=== PATIENT | male | born 1940 | race Caucasian/White ===

== ENCOUNTER 2018-09-09 05:54 | Day surgery (SDC) | payer MEDICARE, OTHER ==
[2018-09-08 14:39] LABS: BASOPHILS # (AUTO) 0.1 X10'3 (0-0.2); BASOPHILS % (AUTO) 0.8 % (0-1); EOSINOPHILS # (AUTO) 0.1 X10'3 (0-0.9); EOSINOPHILS % (AUTO) 1.2 % (0-6); HEMATOCRIT 42.6 % (42.0-52.0); HEMOGLOBIN 14.4 g/dl (14.0-17.9); LYMPHOCYTES # (AUTO) 0.8 X10'3 (1.1-4.8); LYMPHOCYTES % (AUTO) 11.2 % (21-51); MEAN CORPUSCULAR HGB CONC 33.7 g/dL (33.0-36.5); MEAN CORPUSCULAR VOLUME 94.9 FL (78-98); MEAN PLATELET VOLUME 10.5 FL (7.4-10.4); MONOCYTES # (AUTO) 0.4 X10'3 (0-0.9); MONOCYTES % (AUTO) 5.6 % (2-12); NEUTROPHILS # (AUTO) 5.8 X10'3 (1.8-7.7); NEUTROPHILS % (AUTO) 81.2 % (42-75); PLATELET COUNT 246 X10'3 (140-440); RED BLOOD COUNT 4.48 X10'6 (4.70-6.10); WHITE BLOOD COUNT 7.1 X10'3 (4.5-11.0)
[2018-09-08 14:48] LABS: ALBUMIN 3.7 G/DL (3.4-5.0); ANION GAP 7 (8-16); BLOOD UREA NITROGEN 29 MG/DL (7-18); BUN/CREATININE RATIO 23.6 (5.4-32.0); CALCIUM 9.6 MG/DL (8.5-10.1); CHLORIDE 103 MMOL/L (99-107); CREATININE 1.23 MG/DL (0.60-1.10); GLUCOSE 100 MG/DL (70-104); POTASSIUM 4.4 MMOL/L (3.5-5.1); SODIUM 136 MMOL/L (135-145); TOTAL CARBON DIOXIDE 25.8 MMOL/L (24-32); eGFR 57 ML/MIN
[2018-09-08 14:49] LABS: PARTIAL THROMBOPLASTIN TIME 31 SECONDS (22-32)
[2018-09-09] VITALS (16 sets, daily range): BP systolic 110–148; BP diastolic 59–88
[~2018-09-09] VITALS: Ht 188 cm; Wt 93.7 kg
[2018-09-09] MEDS ORDERED: LORazepam 0.5 MG tablet PO PRN (06:20)
[2018-09-09] MEDS ORDERED: normal saline 1,000 ML IV SCH (06:20)
[2018-09-09] MEDS ORDERED: diphenhydrAMINE 25mg capsule PO PRN (06:20)
[2018-09-09] MEDS ORDERED: FEXO180T94 PO (06:33)
[2018-09-09] MEDS ORDERED: LEVO125T PO (06:33)
[2018-09-09] MEDS ORDERED: ASPI81TA52 PO (06:33)
[2018-09-09] MEDS ORDERED: PRED1TAB PO (06:33)
[2018-09-09] MEDS ORDERED: ASCO500C15 PO (07:06)
[2018-09-09] MEDS ORDERED: HYDR25TA4 PO (07:06)
[2018-09-09] MEDS ORDERED: VALS40TA2 PO (07:06)
[2018-09-09] MEDS ORDERED: LIDOcaine/PRILOcaine 5gm cream TP ONE (07:10)
[2018-09-09] MEDS ORDERED: midazolam 2 mg/2 ml injection ONE (07:36)
[2018-09-09] MEDS ORDERED: verapamil 2.5 mg/ml inj IV ONE (07:36)
[2018-09-09] MEDS ORDERED: fentaNYL/PF 50MCG/1 ML 2ML syringe ONE (07:36)
[2018-09-09] MEDS ORDERED: nitroGLYCERIN-Tridil 50MG/D5W 250 ML IV ONE (07:36)
[2018-09-09] MEDS ORDERED: LIDOcaine 1% (10mg/ml)w/preservative injection 20ml MDV ONE (07:36)
[2018-09-09] MEDS ORDERED: heparin 1,000unit/ml 10ml vial 10 ML ONE (07:36)
[2018-09-09] MEDS ORDERED: iohexol 350 MG/ML 50ML vial IV ONE (07:37)
[2018-09-09] MEDS ORDERED: iohexol 350MG/ML 100ml bottle IV ONE (07:37)
[2018-09-09 09:01] LABS: ISTAT HGB ART 12.6 g/dl (14.0-18.0); ISTAT Hct ART 37 %PCV (42-52); ISTAT O2 SATURATION ARTERIAL 97 % (95-98); ISTAT SOURCE ART
[2018-09-09 09:01] LABS: ISTAT Hct MIX 37 %PCV (42-52); ISTAT O2 SATURATION MIX VENOUS 73 % (60-80); ISTAT SOURCE MIX
== END 2018-09-09 14:50 | disposition home or self-care (01) ==
LOC: SSTAY O 05:54
PROVIDERS: ATTEND Internal Medicine Cardiovascular Disease
DX: I25.10 Atherosclerotic heart disease of native coronary artery without angina pectoris (principal); I10 Essential (primary) hypertension; E78.5 Hyperlipidemia, unspecified; J44.9 Chronic obstructive pulmonary disease, unspecified; M19.90 Unspecified osteoarthritis, unspecified site
CPT/HCPCS: 36415; 80048; 82803; 85014; 85025; 85610; 85730; 93005; 93460; 99152; 99153; C1769; C1894; J1644; J2001; J2250; J3010; J7030; Q0163; Q9967; A4620; A5120; A6258; J3490

== ENCOUNTER 2020-05-11 05:52 | Day surgery (SDC) | payer MEDICARE ==
[2020-05-10 14:32] LABS: BASOPHILS # (AUTO) 0.1 X10'3 (0-0.2); BASOPHILS % (AUTO) 0.8 % (0-1); EOSINOPHILS # (AUTO) 0.7 X10'3 (0-0.9); EOSINOPHILS % (AUTO) 9.8 % (0-6); HEMATOCRIT 43.9 % (42.0-52.0); HEMOGLOBIN 14.4 g/dl (14.0-17.9); LYMPHOCYTES # (AUTO) 1.2 X10'3 (1.1-4.8); LYMPHOCYTES % (AUTO) 17.7 % (21-51); MEAN CORPUSCULAR HEMOGLOBIN 30.8 PG (27.0-31.0); MEAN CORPUSCULAR HGB CONC 32.9 g/dL (33.0-36.5); MEAN CORPUSCULAR VOLUME 93.7 FL (78-98); MEAN PLATELET VOLUME 10.7 FL (7.4-10.4); MONOCYTES # (AUTO) 0.8 X10'3 (0-0.9); MONOCYTES % (AUTO) 11.2 % (2-12); NEUTROPHILS # (AUTO) 4.2 X10'3 (1.8-7.7); NEUTROPHILS % (AUTO) 60.5 % (42-75); PLATELET COUNT 206 X10'3 (140-440); RED BLOOD COUNT 4.69 X10'6 (4.70-6.10); RED CELL DISTRIBUTION WIDTH 14.7 % (11.5-14.5); WHITE BLOOD COUNT 6.9 X10'3 (4.5-11.0)
[2020-05-10 14:42] LABS: ALBUMIN 3.9 G/DL (3.4-5.0); ANION GAP 9 (8-16); BLOOD UREA NITROGEN 25 MG/DL (7-18); BUN/CREATININE RATIO 15.7 (5.4-32.0); CALCIUM 9.4 MG/DL (8.5-10.1); CHLORIDE 107 MMOL/L (99-107); CREATININE 1.59 MG/DL (0.60-1.10); GLUCOSE 94 MG/DL (70-104); POTASSIUM 4.7 MMOL/L (3.5-5.1); SODIUM 143 MMOL/L (135-145); TOTAL CARBON DIOXIDE 27.1 MMOL/L (24-32); eGFR 42 ML/MIN
[2020-05-10 14:45] LABS: PARTIAL THROMBOPLASTIN TIME 29 SECONDS (22-32)
[2020-05-10 15:12] LABS: LARGE PLATELETS FEW; PLATELET ESTIMATE NORMAL
[~2020-05-11] VITALS: Ht 188 cm; Wt 97.9 kg
[2020-05-11] VITALS (10 sets, daily range): BP systolic 119–161; BP diastolic 56–74
[~2020-05-11 05:52] MED LIST: ASCO500C18 PO; ASPI81TA52 PO; FEXO180T94 PO; HYDR25TA4 PO; LEVO125T PO; PRED1TAB PO; VALS40TA2 PO
[2020-05-11] MEDS ORDERED: diphenhydrAMINE 25mg capsule PO PRN (06:10)
[2020-05-11] MEDS ORDERED: LORazepam 0.5 MG tablet PO PRN (06:10)
[2020-05-11] MEDS ORDERED: normal saline 1,000 ML IV SCH (06:10)
[2020-05-11] MEDS ORDERED: ATOR40TA PO (06:16)
[2020-05-11] MEDS ORDERED: LIDOcaine/PRILOcaine 5gm cream TP ONE (06:25)
[2020-05-11] MEDS ORDERED: sodium bicarbonate (8.4%) inj. 150 ML in dextrose 5%-water 1,000 ML IV ONE (06:30)
[2020-05-11] MEDS ORDERED: nitroGLYCERIN-Tridil 50MG/D5W 250 ML IV ONE (07:12)
[2020-05-11] MEDS ORDERED: IOHEXOL 350 MG/ML INFUS..BTL 75ML IV ONE (07:13)
[2020-05-11] MEDS ORDERED: iohexol 350MG/ML 100ml bottle IV ONE (07:13)
[2020-05-11] MEDS ORDERED: heparin 1,000unit/ml 10ml vial 10 ML ONE (07:13)
[2020-05-11] MEDS ORDERED: fentaNYL/PF 50MCG/1 ML 2ML syringe ONE (07:13)
[2020-05-11] MEDS ORDERED: midazolam 1 mg/ML 2ml injection ONE (07:13)
[2020-05-11] MEDS ORDERED: LIDOcaine 1% (10mg/ml)w/preservative injection 20ml MDV ONE (07:13)
[2020-05-11] MEDS ORDERED: verapamil 2.5 mg/ml inj IV ONE (07:15)
--- NOTE | 2020-05-11 09:21 | NUR ---
pt back from procedure. Denies pain, denies sob. Pt heart rate noted at 36 but pt denies symptoms of sob, or chest pain. vs stable as charted. will continue to monitor. Pt sitting up in bed, eating lunch tray.
--- NOTE | 2020-05-11 09:40 | NUR ---
Pt ate 100% of lunch tray, Voided 350ml clear, yellow.
--- NOTE | 2020-05-11 09:41 | NUR ---
Left message on pt's 's cell phone to please call back to the hospital.
--- NOTE | 2020-05-11 09:51 | NUR ---
Called cytology laboratory manager spoke with luis alberto Chua who was participating in procedure with and asked for confirmation that MD was aware of pt low heart rate, she confirmed confirmation pt was in a "Wenckebach" rhythm and is aware.
--- NOTE | 2020-05-11 11:17 | NUR ---
pt ambulated to bathroom, voided. denies cp, denies sob.
--- NOTE | 2020-05-11 13:22 | NUR ---
pt ambulated to bathroom, voided. denies sob, denies cp.
[2020-05-11 14:14] LABS: ISTAT HGB ART 13.6 g/dl (14.0-18.0); ISTAT Hct ART 40 %PCV (42-52); ISTAT O2 SATURATION ARTERIAL 96 % (95-98); ISTAT SOURCE ART
[2020-05-16 09:03] LABS: ISTAT Hct MIX 39 %PCV (42-52); ISTAT O2 SATURATION MIX VENOUS 72 % (60-80); ISTAT SOURCE VEN
== END 2020-05-11 14:00 | disposition home or self-care (01) ==
LOC: SSTAY O 05:52
PROVIDERS: ATTEND Internal Medicine Cardiovascular Disease
DX: R94.39 Abnormal result of other cardiovascular function study (principal); R53.83 Other fatigue; I25.10 Atherosclerotic heart disease of native coronary artery without angina pectoris; I10 Essential (primary) hypertension; E78.5 Hyperlipidemia, unspecified; Z79.899 Other long term (current) drug therapy; Z79.82 Long term (current) use of aspirin; Z79.01 Long term (current) use of anticoagulants; Z80.6 Family history of leukemia; Z80.1 Family history of malignant neoplasm of trachea, bronchus and lung
CPT/HCPCS: 36415; 80048; 82803; 85014; 85025; 85610; 85730; 93005; 93460; 99152; 99153; C1769; C1894; J1644; J2001; J2250; J3010; Q0163; Q9967; 85008; A4620; A5120; A6258; C1751; J3490

== ENCOUNTER 2021-08-23 06:04 | Day surgery (SDC) | payer MEDICARE ==
[2021-08-22 12:54] LABS: BASOPHILS % (AUTO) 0.7 % (0-1); EOSINOPHILS # (AUTO) 0.4 X10'3 (0-0.9); EOSINOPHILS % (AUTO) 6.2 % (0-6); HEMATOCRIT 42.1 % (42.0-52.0); HEMOGLOBIN 13.9 g/dl (14.0-17.9); LYMPHOCYTES # (AUTO) 1.1 X10'3 (1.1-4.8); LYMPHOCYTES % (AUTO) 16.9 % (21-51); MEAN CORPUSCULAR HEMOGLOBIN 30.5 PG (27.0-31.0); MEAN CORPUSCULAR VOLUME 92.5 FL (78-98); MONOCYTES # (AUTO) 0.6 X10'3 (0-0.9); MONOCYTES % (AUTO) 9.4 % (2-12); NEUTROPHILS # (AUTO) 4.2 X10'3 (1.8-7.7); NEUTROPHILS % (AUTO) 66.8 % (42-75); PLATELET COUNT 195 X10'3 (140-440); RED BLOOD COUNT 4.55 X10'6 (4.70-6.10); RED CELL DISTRIBUTION WIDTH 15.3 % (11.5-14.5); WHITE BLOOD COUNT 6.3 X10'3 (4.5-11.0)
[2021-08-22 13:00] LABS: ALBUMIN 3.8 G/DL (3.4-5.0); ANION GAP 8 (8-16); BLOOD UREA NITROGEN 25 MG/DL (7-18); BUN/CREATININE RATIO 20.3 (5.4-32.0); CALCIUM 8.9 MG/DL (8.5-10.1); CHLORIDE 105 MMOL/L (99-107); CREATININE 1.23 MG/DL (0.60-1.10); GLUCOSE 99 MG/DL (70-104); POTASSIUM 4.5 MMOL/L (3.5-5.1); SODIUM 138 MMOL/L (135-145); TOTAL CARBON DIOXIDE 24.9 MMOL/L (24-32); eGFR 56 ML/MIN
[2021-08-22 13:12] LABS: APTT 29 SECONDS (22-32)
[2021-08-22 14:20] LABS: BURR CELLS FEW; LARGE PLATELETS FEW; PLATELET ESTIMATE NORMAL
[2021-08-22 14:21] LABS: ACANTHOCYTES FEW; ELLIPTOCYTES FEW
[~2021-08-23] VITALS: Ht 188 cm; Wt 96.8 kg
[2021-08-23] VITALS (13 sets, daily range): BP systolic 111–190; BP diastolic 48–84
[~2021-08-23 06:04] MED LIST changes: +ATOR40TA PO; -FEXO180T94 PO; -HYDR25TA4 PO; -LEVO125T PO; -PRED1TAB PO
[2021-08-23] MEDS ORDERED: acetylcysteine 200 MG/ml 4ml vial PO PRN (06:25)
[2021-08-23] MEDS ORDERED: diphenhydrAMINE 25mg capsule PO PRN (06:25)
[2021-08-23] MEDS ORDERED: LIDOcaine/PRILOcaine 5gm cream TP ONE (06:30)
[2021-08-23] MEDS ORDERED: normal saline 1,000 ML IV SCH (06:30)
[2021-08-23] MEDS ORDERED: sodium bicarbonate (8.4%) inj. 150 ML in dextrose 5%-water 1,000 ML IV ONE ×2 (06:35→09:35)
[2021-08-23] MEDS ORDERED: midazolam 1 mg/ML 2ml injection ONE (07:26)
[2021-08-23] MEDS ORDERED: LIDOcaine 1% 30ml preserv. free vial ONE (07:26)
[2021-08-23] MEDS ORDERED: fentaNYL/PF 50MCG/1 ML 2ML syringe ONE (07:26)
[2021-08-23] MEDS ORDERED: nitroGLYCERIN-Tridil 50MG/D5W 250 ML IV ONE (07:26)
[2021-08-23] MEDS ORDERED: verapamil 2.5 mg/ml inj IV ONE (07:26)
[2021-08-23] MEDS ORDERED: iohexol 350MG/ML 100ml bottle IV ONE (07:26)
[2021-08-23] MEDS ORDERED: heparin 1,000unit/ml 10ml vial 10 ML ONE (07:26)
[2021-08-23] MEDS ORDERED: atropine 0.1mg/ml 10ml syringe ONE (08:25)
[2021-08-23] MEDS ORDERED: hydrALAZINE 20mg/ml inj. IV PRN (11:30)
--- NOTE | 2021-08-23 13:15 | NUR ---
Pt ambulated to bathroom, stating he needed to have a BM. Pt did not. Pt stated he was nauseous. Denies sob, denies cp. EKG was ordered. Pt states he is unable to empty his bladder. States he is only "dribbling". was contacted.
--- NOTE | 2021-08-23 13:30 | NUR ---
Straight cath completed as ordered. 1200ml clear, yellow. Pt states he "feels much better". Pt BP 104/46. Bolus being given. Pt SpO2 97%, HR 36.Pt is at the bedside.
--- NOTE | 2021-08-23 14:03 | NUR ---
Spoke with MD. Reported pt condition. VS stable as charted. Pt sitting up in bed visiting with . MD would like to hold pt here in unit until he can come see pt. Pt and agreed.
--- NOTE | 2021-08-23 14:33 | NUR ---
Pt sitting up in bed, visiting with . Denies pain, denies sob. Refusing offer for food at this time. Pt states, "I'm holding out for better food", with a laugh.
--- NOTE | 2021-08-23 16:16 | NUR ---
Pt ambulated in [place]. VS stable as charted. Pt denies sob, denies cp. Pt sitting up in bed with feet dangling
--- NOTE | 2021-08-23 17:18 | NUR ---
Pt voided. Reports "urine is red". Denies pain. States he "feels like my bladder is empty".
== END 2021-08-23 17:25 | disposition home or self-care (01) ==
LOC: SSTAY O 06:04
PROVIDERS: ATTEND Internal Medicine Cardiovascular Disease
DX: R94.30 Abnormal result of cardiovascular function study, unspecified (principal); I25.10 Atherosclerotic heart disease of native coronary artery without angina pectoris; I10 Essential (primary) hypertension; E78.5 Hyperlipidemia, unspecified; Z86.73 Personal history of transient ischemic attack (TIA), and cerebral infarction without residual deficits; Z98.890 Other specified postprocedural states; Z79.899 Other long term (current) drug therapy; Z79.01 Long term (current) use of anticoagulants
CPT/HCPCS: 36415; 76937; 80048; 85025; 85610; 85730; 93005; 93458; 99152; 99153; A6258; C1758; C1769; C1894; J0360; J0461; J1644; J2250; J3010; J3490; J7030; J7070; Q0163; Q9967; 85008; A4620; A5120; A6402

== ENCOUNTER 2021-10-18 16:25 | Emergency (ER) | payer MEDICARE ==
[~2021-10-18] VITALS: Ht 188 cm; Wt 84.4 kg
[~2021-10-18 16:25] MED LIST changes: +AMIO200T67 PO; -ASCO500C18 PO; -ASPI81TA52 PO; +ASPI81TA53 PO; +ATOR10TA PO; -ATOR40TA PO; +CEPH-585 PO; +LEVO25TA7 PO; +LOP12.5T PO; +PANT40TA54 PO; -VALS40TA2 PO
[2021-10-18 16:55] LABS: BASOPHILS # (AUTO) 0.1 X10'3 (0-0.2); BASOPHILS % (AUTO) 1.4 % (0-1); EOSINOPHILS # (AUTO) 0.4 X10'3 (0-0.9); HEMATOCRIT 32.5 % (42.0-52.0); HEMOGLOBIN 10.6 g/dl (14.0-17.9); LYMPHOCYTES % (AUTO) 15.5 % (21-51); MEAN CORPUSCULAR HEMOGLOBIN 29.1 PG (27.0-31.0); MEAN CORPUSCULAR HGB CONC 32.6 g/dL (33.0-36.5); MEAN CORPUSCULAR VOLUME 89.2 FL (78-98); MEAN PLATELET VOLUME 8.6 FL (7.4-10.4); MONOCYTES # (AUTO) 0.7 X10'3 (0-0.9); MONOCYTES % (AUTO) 10.5 % (2-12); NEUTROPHILS # (AUTO) 4.3 X10'3 (1.8-7.7); NEUTROPHILS % (AUTO) 66.6 % (42-75); PLATELET COUNT 410 X10'3 (140-440); RED BLOOD COUNT 3.64 X10'6 (4.70-6.10); RED CELL DISTRIBUTION WIDTH 17.8 % (11.5-14.5); WHITE BLOOD COUNT 6.4 X10'3 (4.5-11.0)
[2021-10-18 17:11] LABS: ALANINE AMINOTRANSFERASE 23 U/L (12-78); ALBUMIN 3.4 G/DL (3.4-5.0); ALBUMIN/GLOBULIN RATIO 0.9 (1.1-1.5); ALKALINE PHOSPHATASE 97 IU/L (46-116); ANION GAP 8 (8-16); ASPARTATE AMINO TRANSFERASE 17 U/L (10-37); BILIRUBIN,TOTAL 0.5 MG/DL (0.1-1.0); BLOOD UREA NITROGEN 17 MG/DL (7-18); CHLORIDE 108 MMOL/L (99-107); CREATININE 1.31 MG/DL (0.60-1.10); GLUCOSE 118 MG/DL (70-104); POTASSIUM 4.4 MMOL/L (3.5-5.1); SODIUM 140 MMOL/L (135-145); TOTAL CARBON DIOXIDE 24.3 MMOL/L (24-32); TOTAL PROTEIN 7.3 G/DL (6.4-8.2); eGFR 52 ML/MIN
[2021-10-18 19:51] VITALS: BP 145/84
== END 2021-10-18 20:18 | disposition home or self-care (01) ==
LOC: ER 16:25
DX: Z13.89 Encounter for screening for other disorder (principal); R06.02 Shortness of breath; I25.10 Atherosclerotic heart disease of native coronary artery without angina pectoris; I10 Essential (primary) hypertension; E11.9 Type 2 diabetes mellitus without complications; Z95.1 Presence of aortocoronary bypass graft; Z98.890 Other specified postprocedural states; Z79.82 Long term (current) use of aspirin; Z79.2 Long term (current) use of antibiotics; Z79.899 Other long term (current) drug therapy
CPT/HCPCS: 36415; 71045; 80053; 83880; 84484; 85025; 93005; 99285

== ENCOUNTER 2021-10-26 12:06 | Outpatient (CLI) | payer MEDICARE | END 2021-10-26 23:59 | disposition home or self-care (01) | LOC: RAD 12:06 | DX: J90 Pleural effusion, not elsewhere classified (principal); I70.0 Atherosclerosis of aorta; Z95.0 Presence of cardiac pacemaker | CPT/HCPCS: 71046 ==

== ENCOUNTER 2023-04-02 08:13 | Outpatient (CLI) | payer MEDICARE ==
[2023-04-02 09:15] LABS: BILIRUBIN,URINE NEGATIVE (Neg); CLARITY,URINE CLEAR (Clear); COLOR,URINE YELLOW (Yellow); GLUCOSE, URINE NEGATIVE (Neg); KETONES,URINE NEGATIVE (Neg); LEUKOCYTE ESTERASE ,URINE NEGATIVE (Neg); NITRITES, URINE NEGATIVE (Neg); OCCULT BLOOD,URINE NEGATIVE (Neg); PROTEIN,URINE NEGATIVE (Neg); UROBILINOGEN,URINE 0.2 E.U/dL (0.2-1.0)
[2023-04-02 09:30] LABS: BASOPHILS # (AUTO) 0.1 X10'3 (0-0.2); BASOPHILS % (AUTO) 0.9 % (0-1); EOSINOPHILS # (AUTO) 0.3 X10'3 (0-0.9); EOSINOPHILS % (AUTO) 4.5 % (0-6); LYMPHOCYTES # (AUTO) 1.1 X10'3 (1.1-4.8); LYMPHOCYTES % (AUTO) 15.2 % (21-51); MEAN CORPUSCULAR HEMOGLOBIN 32.1 PG (27.0-31.0); MEAN CORPUSCULAR VOLUME 97.3 FL (78-98); MEAN PLATELET VOLUME 10.2 FL (7.4-10.4); MONOCYTES # (AUTO) 0.8 X10'3 (0-0.9); MONOCYTES % (AUTO) 11.5 % (2-12); NEUTROPHILS % (AUTO) 67.9 % (42-75); PRE OP HEMOGLOBIN 16.2 g/dL (14.0-17.9); PRE OP PLATELET COUNT 180 X10'3 (140-440); PRE OP WHITE BLOOD COUNT 7.3 10'3 (4.8-10.8); RED BLOOD COUNT 5.04 X10'6 (4.70-6.10); RED CELL DISTRIBUTION WIDTH 15.1 % (11.5-14.5)
[2023-04-02 09:36] LABS: UA COLLECTION TYPE VOIDED
[2023-04-02] MEDS ORDERED: ROSU40TA22 PO (09:36)
[2023-04-02] MEDS ORDERED: ASPI81TA52 PO (09:36)
[2023-04-02] MEDS ORDERED: APIX5TAB3 PO (09:36)
[2023-04-02] MEDS ORDERED: MULT-1141 PO (09:36)
[2023-04-02] MEDS ORDERED: ASCO500C17 PO (09:36)
[2023-04-02] MEDS ORDERED: METO-395 PO (09:36)
[2023-04-02 09:41] LABS: ALBUMIN 3.7 G/DL (3.4-5.0); ALBUMIN/GLOBULIN RATIO 0.9 (1.1-1.5); ALKALINE PHOSPHATASE 74 IU/L (46-116); BLOOD UREA NITROGEN 26 MG/DL (7-18); BUN/CREATININE RATIO 19.1 (10.0-20.0); CALCIUM 9.2 MG/DL (8.5-10.1); CHLORIDE 106 MMOL/L (99-107); CREATININE 1.36 MG/DL (0.60-1.10); PRE OP ANION GAP 11 (8-16); PRE OP AST 82 U/L (10-37); PRE OP BILIRUB, TOTAL 0.8 MG/DL (0.0-1.0); PRE OP GLUCOSE 97 MG/DL (70-104); PRE OP POTASSIUM 5.1 MMOL/L (3.4-5.1); PRE OP SODIUM 141 MMOL/L (135-145); TOTAL CARBON DIOXIDE 24.2 MMOL/L (24-32); TOTAL PROTEIN 7.7 G/DL (6.4-8.2); eGFR 50 ML/MIN
[2023-04-02 09:49] LABS: PRE OP ALT 92 U/L (30-65)
== END 2023-04-02 23:59 | disposition home or self-care (01) ==
LOC: PRE-OP 08:13 → EDSTATUS 04-26 13:45
PROVIDERS: ATTEND Podiatrist Foot & Ankle Surgery
DX: Z01.812 Encounter for preprocedural laboratory examination (principal); M25.571 Pain in right ankle and joints of right foot; M12 Other and unspecified arthropathy; M25.471 Effusion, right ankle; M21.41 Flat foot [pes planus] (acquired), right foot; M25.579 Pain in unspecified ankle and joints of unspecified foot; M79.605 Pain in left leg; M25.472 Effusion, left ankle
CPT/HCPCS: 36415; 80053; 81003; 85025